=== PATIENT | female | born 1940 | race Caucasian/White ===

== ENCOUNTER 2016-05-14 14:24 | Emergency (ER) | payer OTHER ==
[~2016-05-14] VITALS: Ht 152.4 cm; Wt 45.4 kg
[2016-05-14 14:38] VITALS: BP 115/63
--- NOTE | 2016-05-14 14:44 | NUR ---
Patient to bed 07.
--- NOTE | 2016-05-14 14:57 | NUR ---
PATIENT PRESENTS TO ED WITH SORE THROAT AND COUGH X1 DAY . PT STATES SHE HAS ASTHMA, TAKES PREDNISONE, INHALER, AND CLARITIN. DENIES N/V/D; SKIN IS PINK/WARM/DRY; AAOX4 WITH EVEN AND STEADY GAIT; LUNGS CLEAR BL; HR EVEN AND REGULAR; PT DENIES ANY CP; PATIENT STATES PAIN OF 6/10 AT THIS TIME; VSS; PATIENT POSITIONED FOR COMFORT; HOB ELEVATED; BEDRAILS UP X2; BED DOWN. ER MD MADE AWARE OF PT STATUS.
--- NOTE | 2016-05-14 15:14 | NUR ---
Patient ambulated to XRAY with tech.
--- NOTE | 2016-05-14 15:23 | NUR ---
Patient ambulated back to bed from XRAY with tech.
[2016-05-14 15:56] VITALS: BP 137/73
--- NOTE | 2016-05-14 16:00 | NUR ---
Patient discharged with v/s stable. Written and verbal after care instructions given and explained. Patient alert, oriented and verbalized understanding of instructions. Ambulatory with steady gait. All questions addressed prior to discharge. ID band removed. Patient advised to follow up with PMD. Rx of LEVAQUIN AND DM/PROMETHAZINE given. Patient educated on indication of medication including possible reaction and side effects. Opportunity to ask questions provided and answered.
== END 2016-05-14 16:00 | disposition home or self-care (01) ==
LOC: MED 14:24
DX: J18.9 Pneumonia, unspecified organism (principal); J45.909 Unspecified asthma, uncomplicated; J02.9 Acute pharyngitis, unspecified